=== PATIENT | female | born 1955 | race Asian ===

== ENCOUNTER 2022-05-18 11:26 | Outpatient (CLI) | payer OTHER, SELFPAY ==
--- NOTE | 2022-05-18 11:30 | CRLHL7_ITS ---
For Patients: As a result of the Century Cures Act, medical imaging exams and procedure reports are released immediately into your electronic medical record. You may view this report before your referring provider. If you have questions, please contact your health care provider. BILATERAL SCREENING MAMMOGRAM WITH COMPUTER-AIDED DETECTION AND TOMOSYNTHESIS TECHNIQUE: CC and MLO views were obtained. These mammographic images have been obtained using full-field digital technique. These mammographic images were interpreted with the benefit of computer-aided detection. Breast Tomosynthesis was used in this interpretation. COMPARISON FILM: 05/13/20, 04/17/19, 04/16/18. FINDINGS: There are scattered areas of fibroglandular density IMPRESSION: There is no radiographic evidence for malignancy. ASSESSMENT: BI-RADS Category 1: Negative RECOMMENDATION: Routine screening mammogram in 1 year. A lay language report of this examination will be provided to the patient. Migue Nichole M.D. Diagnostic Radiologist [email or web address] JACK/Dictated by: Migue Nichole MD @ 05/19/2022 9:02:00 AM (Electronically Signed)
== END 2022-05-18 11:27 | disposition home or self-care (01) ==
LOC: MAMMO 11:27
PROVIDERS: PCP Physician Assistant Medical; Visit Provider Physician Assistant Medical
DX: Z12.31 Encounter for screening mammogram for malignant neoplasm of breast (principal)
CPT/HCPCS: 77063; 77067

== ENCOUNTER 2023-05-30 14:31 | Outpatient (CLI) | payer OTHER, SELFPAY ==
--- NOTE | 2023-05-30 14:40 | CRLHL7_ITS ---
For Patients: As a result of the Cures Act, medical imaging exams and procedure reports are released immediately into your electronic medical record. You may view this report before your referring provider. If you have questions, please contact your health care provider. BILATERAL SCREENING MAMMOGRAM WITH COMPUTER-AIDED DETECTION AND TOMOSYNTHESIS TECHNIQUE: CC and MLO views were obtained. These mammographic images have been obtained using full-field digital technique. These mammographic images were interpreted with the benefit of computer-aided detection. Breast Tomosynthesis was used in this interpretation. COMPARISON FILM: , 05/13/20, 04/07/19. FINDINGS: There are scattered areas of fibroglandular density IMPRESSION: There is no radiographic evidence for malignancy. ASSESSMENT: BI-RADS Category 1: Negative RECOMMENDATION: Routine screening mammogram in 1 year. A lay language report of this examination will be provided to the patient. DEV JOSEPH M.D. Diagnostic/Nuclear Medicine Radiologist [email or web address] SHELTON:[email or web address] Transcribed: 2:46 p.mRandolph white/Dictated by: Dev Joseph MD @ 06/01/2023 9:11:00 AM (Electronically Signed)
--- OUTSIDE RECORDS SUMMARY | 2023-05-30 14:58 | XMS_ITS | Clinical Summary ---
Author Name Unknown Organization [facility] Address [place], [place] [address] Care Team Providers Care Continuous Vulcanizing Machine Operator Name Role Phone Belkys Elizabeth Primary Care Provider Allergies No known active allergies Medications Medication Sig Dispensed Refills Start Date End Date Status MULTIVITAMIN TAB take 1 tablet by oral route once daily with food 0 12/31/2007 Active latanoprost (XALATAN) 0.005 % ophthalmic solution Place 1 Drop into both eyes at bedtime. 3 02/25/2017 Active timolol maleate (TIMOPTIC) 0.5 % ophthalmic solution Place 1 Drop into left eye 2 times daily. 2 01/13/2017 Active brimonidine (ALPHAGAN) 0.2 % ophthalmic solution Place 1 Drop into left eye 2 times daily. 5 mL 0 04/11/2017 Active lisinopriL (PRINIVIL; ZESTRIL) 10 mg tabletIndications:HTN (hypertension) Take 1 Tablet (10 mg) by mouth once daily. 90 Tablet 3 05/02/2023 Active Active Problems No known active problems Encounters Date Type Department Care Team Description 05/02/2023 9:30 AM GLUER MACHINE SETUP OPERATOR Office Visit [facility] [address] [place] [address] Belkys Elizabeth PA Medicare ANNUAL (subsequent) Visit (67 years old) 05/02/2023 9:10 AM GLUER MACHINE SETUP OPERATOR Orders Only [facility] [address] [facility] [place] [address] Lab, [place] [facility] 05/02/2023 Travel 03/13/2023 Telephone [facility] [address] [facility] [place] [address] Belkys Elizabeth PA call (Medicare Wellness Visit) from Last 3 Months Immunizations Name Administration Dates Next Due AMB Influenza, IIV3 (Age >=3 years)(Flu Clinic Only) 03/11/2010 AMB Influenza, IIV4 PF (=>6 mos Flulaval,Fluzone Fluarix)(Flu Clinic Only) 03/05/2016,03/12/2015,03/13/2014 COVID-19 vaccine ([facility] [employer] 30mcg/0.3mL) PF, MDV 08/01/2020,07/11/2020 Hepatitis A (Adult) 12/10/2004 Influenza A (H1N1), Inactivated 04/29/2009 Influenza, High-dose Quadriv alent Inactivated 02/16/2023,02/13/2022,02/17/2021 Influenza, IIV3 (Age 6-35 mos) 03/21/2013,2011,03/11/2011 Influenza, IIV3 (Age >=3 years) 04/11/2007,03/11,03/24/2003 Influenza, IIV4 02/01/2021,,03/07/2018,2017,03/10/2017 Pneumococcal Poly,23-Valent (Pneumovax) 04/24/2020 Pneumococcal conj 13-Valent (Prevnar 13) 06/24/2019 Tdap 03/05/2010 Family History Medical History Relation Name Comments Gallbladder disease Brother Stroke Mother Hypertension Sister Relation Name Status Comments Brother Father (Age 50) Mother Sister Social History Tobacco Use Types Packs/Day Years Used Date Smoking Tobacco: Never Smokeless Tobacco: Never Tobacco Cessation:Counseling Given: Yes Alcohol Use Standard Drinks/Week Comments No 0 (1 standard drink = 0.6 oz pur e alcohol) PHQ-2 Answer Date Recorded PHQ-2 TOTAL SCORE 0 05/02/2023 Social Connections Answer Date Recorded Frequency of Communication with Friends and Fami ly Not on file 05/01/2023 Financial Resource Strain Answer Date R ecorded Difficulty of Paying Living Expenses 3 04/29/2022 Difficulty of Paying Living Expenses Not on file 04/29/2022 Food Insecurity Answer Date Recorded Worried About Running Out of Food in the Last Ye ar 1 04/29/2022 Transportation Needs Answer Date Record ed Lack of Transportation (Medical) 1 04/29/2022 Housing Stability Answer Date Recorded Unable to Pay for Housing in the Last Year 1 04/29/2022 Sex and Gender Information Value Date Recorded Sex Assigned at Not on file Gender Identity Not on file Sexual Orientation Not on file Obstetrics History Para Term AB IAB SAB Ectopic Multiple Livin g Live Births 2 2 2 2 Date Outcome GA Total Labor Labor/2nd/3rd Weight Sex Delivery Anes PTL Pamela A1 A5 Name Cl in Term Term Last Filed Vital Signs Vital Sign Reading Time Taken Comments Blood Pressure 129/80 05/02/2023 9:29 AM GLUER MACHINE SETUP OPERATOR Pulse 74 05/02/2023 9:29 AM GLUER MACHINE SETUP OPERATOR Temperature 36.8 ??C (98.2 ??F) 06/24/2019 4:20 PM CS T Respiratory Rate 20 06/10/2019 11:18 AM GLUER MACHINE SETUP OPERATOR Oxygen Saturation 98% 06/24/2019 4:20 PM GLUER MACHINE SETUP OPERATOR Inhaled Oxygen Concentration - - Weight 52.2 kg (115 lb) 05/02/2023 9:29 AM GLUER MACHINE SETUP OPERATOR Height 149 cm (4' 10.66) 05/02/2023 9:29 AM GLUER MACHINE SETUP OPERATOR Body Mass Index 23.5 05/02/2023 9:29 AM GLUER MACHINE SETUP OPERATOR Plan of Treatment Health Maintenance Due Date Last Done Comments Zoster (shingles) series for age 50+ (1 of 2) 2004 Tetanus booster 03/05/2020 03/05/2010, 03/05/2010 COVID-19 vaccine series ( season) 2023 04/21/2022, 09/14/2021, 03/08/2021, Additional history exists Mammogram for age 45-75 2023 05/18/20 22, 05/17/2021, 05/13/2020, Additional history exists Medicare Wellness for age 65+ 05/01/2024, 04/29/2022, 04/27/2021, Additional history exists BMI (ht and wt on same day) for age 18+ 05/02/2024 05/02/2023, 04/29/2022, 04/27/2021, Additional history exists Depression screening for age 12+ 05/02/2024 05/02/2023, 04/29/2022, 04/28/2021, Additional history exists Colonoscopy through age 75 05/10/2025 05/10/2015, Lipids for age 45-75 05/02/2028 05/02/2023, 04/29/2022, 04/27/2021, Additional history exists Tdap Completed 03/05/2010 Pneumococcal series for age 65+ Completed 0, 06/24/2019 DEXA/DXA scan for age 65+ Completed 04/27/2020, Hepatitis C screening for ag e 18-79 Completed 04/29/2022 Influenza for age 65+ Completed 02/16/2023 , 02/13/2022, 02/17/2021, Additional history exists Procedures Procedure Name Priority Date/Time Associated Diagnosis Comments BASIC METABOLIC PANEL Routine 05/02/2023 9:12 AM GLUER MACHINE SETUP OPERATOR HTN (hypertension) LIPID PANEL W REFLEX MEASURED LDL Routine 05/02/2023 9:12 AM GLUER MACHINE SETUP OPERATOR Screening cholesterol level from Last 3 Months Results * (ABNORMAL) LIPID PANEL W REFLEX MEASURED LDL (05/02/2023 9:12 AM GLUER MACHINE SETUP OPERATOR) CHOLESTEROL,TOTAL 203(H) 100 - 199 mg/dL 05/02/2023 5:07 PM GLUER MACHINE SETUP OPERATOR [facility] Comment: Cholesterol, Total Reference Ranges Desirable <200 mg/dL Borderline 200-239 mg/dL High >=240 mg/dL TRIGLYCERIDES 120 <150 mg/dL 05/02/2023 5:07 PM GLUER MACHINE SETUP OPERATOR [facility] HDL CHOLESTEROL 66 >40 mg/dL 3 5:07 PM GLUER MACHINE SETUP OPERATOR [facility] NON-HDL CHOLESTEROL 137 <145 mg/dl 05/02/2023 5:07 PM GLUER MACHINE SETUP OPERATOR [facility] CHOL/HDL RATIO 3.08 <4.50 05/02/2023 5:07 PM GLUER MACHINE SETUP OPERATOR [facility] LDL CHOLESTEROL 113 <=130 mg/dL 05/02/2023 5:07 PM GLUER MACHINE SETUP OPERATOR [facility] VLDL CHOLESTEROL 24 <=30 mg/dL 05/02/2023 5:07 PM [facility] PROVIDER ORDERED STATUS RANDOM 05/02/2023 5:07 PM [facility] Blood BLOOD SPECIMEN / Unknown Venipuncture / Unknown 05/02/2023 9:12 AM GLUER MACHINE SETUP OPERATOR 05/02/2023 9:14 AM [facility] Belkys GARCES CHEMISTRY [facility] [address] [place] [address], * (ABNORMAL) BASIC METABOLIC PANEL (05/02/2023 9:12 AM GLUER MACHINE SETUP OPERATOR) SODIUM 142 136 - 145 mmol/L 05/02/2023 5:07 PM [facility] POTASSIUM 4.5 3.5 - 5.1 mmol/L 05/02/2023 5:07 PM [facility] CHLORIDE 106 98 - 107 mmol/L 05/02/2023 5:07 PM [facility] CO2,TOTAL 28 22 - 29 mmol/L 05/02/2023 5:07 PM [facility] ANION GAP 8 5 - 18 05/02/2023 5:07 PM [facility] GLUCOSE 98 70 - 99 mg/dL 05/02/2023 5:07 PM [facility] CALCIUM 9.4 8.8 - 10.2 mg/dL 05/02/2023 5:07 PM [facility] BUN 17 8 - 23 mg/dL 05/02/2023 5:07 PM [facility] CREATININE 0.74 0.50 - 0.90 mg/dL 05/02/2023 5:07 PM [facility] BUN/CREAT RATIO 23(H) 10 - 20 5:07 PM [facility] eGFR 88(L) >90 mL/min/1.7 3m2 05/02/2023 5:07 PM [facility] Comment:As of 2021, eG FR is calculated by the CKD-EPI creatinine equation without race adjustment. ??eGFR can be influenced by muscle mass, exercise, and diet. ??The reported eGFR is an estimation only and is only applicable if the renal function is stable. Blood BLOOD SPECIMEN / Unknown Venipuncture / Unknown 05/02/2023 9:12 AM GLUER MACHINE SETUP OPERATOR 05/02/2023 9:14 AM GLUER MACHINE SETUP OPERATOR Belkys GARCES CHEMISTRY [facility] [address] [place] [address], from Last 3 Months Care Teams Continuous Vulcanizing Machine Operator Relationship Specialty Start Date End Date Belkys Elizabeth PA [address] [place] [address] PCP - General Physician Human Resources Benefits Manager 05/31/19
== END 2023-05-30 14:32 | disposition home or self-care (01) ==
LOC: MAMMO 14:32
PROVIDERS: PCP Physician Assistant Medical; Visit Provider Physician Assistant Medical
DX: Z12.31 Encounter for screening mammogram for malignant neoplasm of breast (principal)
CPT/HCPCS: 77063; 77067

== ENCOUNTER 2024-03-28 10:15 | Outpatient (RCR) | payer MEDICARE, SELFPAY | END 2024-05-29 15:57 | disposition home or self-care (01) | PROVIDERS: PCP Physician Assistant Medical; Visit Provider Family Medicine | DX: H81.11 Benign paroxysmal vertigo, right ear (principal); Z51.89 Encounter for other specified aftercare | CPT/HCPCS: 97161 ==

== ENCOUNTER 2024-06-19 11:17 | Outpatient (CLI) | payer MEDICARE, SELFPAY | END 2024-06-19 11:18 | disposition home or self-care (01) | LOC: MAMMO 11:18 | PROVIDERS: PCP Physician Assistant Medical; Visit Provider Physician Assistant Medical | DX: Z12.31 Encounter for screening mammogram for malignant neoplasm of breast (principal) | CPT/HCPCS: 77063; 77067 ==

== ENCOUNTER 2025-04-14 07:21 | Outpatient (CLI) | payer MEDICARE, SELFPAY ==
--- NOTE | 2025-04-14 09:03 | P.ANES_ITS ---
Anesthesia Charges Start Date/Time Anesthesia Start Date: 04/14/25 Anesthesia Start Time: 08:33 Stop Date/Time Anesthesia Stop Date: 04/14/25 Anesthesia Stop Time: 08:59 Summary Extremes of Age - Over 70 or under 1: FITTING ROOM MAINTENANCE MECHANIC Coding CPT Codes CPT Codes: SEGUNDO LWR INTST NDSC NOS - 42110 ([id number]) P2 - PATIENT W/MILD SYST DISEASE, QK - PERFORMANCE ANALYST 2-4 CNCRNT ANECorey PROC, QX - FITTING ROOM MAINTENANCE MECHANIC SVC W/ MD MED DIRECTION Additional Codes: Summary - Extremes of Age - Over 70 or under 1: FITTING ROOM MAINTENANCE MECHANIC ([id number])
--- NOTE | 2025-04-14 09:03 | W.ANESCHARGE ---
Anesthesia Charges Start Date/Time Anesthesia Start Date: 04/14/25 Anesthesia Start Time: 08:33 Stop Date/Time Anesthesia Stop Date: 04/14/25 Anesthesia Stop Time: 08:59 Summary Extremes of Age - Over 70 or under 1: TELETYPE OR VARITYPE KEYBOARD OPERATOR Coding CPT Codes CPT Codes: SEGUNDO LWR INTST NDSC NOS - 71997 ([id number]) P2 - PATIENT W/MILD SYST DISEASE, QK - [employer] GR[employer] MANAGER 2-4 CNCRNT ANECorey PROC, QX - TELETYPE OR VARITYPE KEYBOARD OPERATOR SVC W/ MD MED DIRECTION Additional Codes: Summary - Extremes of Age - Over 70 or under 1: TELETYPE OR VARITYPE KEYBOARD OPERATOR ([id number])
--- NOTE | 2025-04-14 10:06 | P.ANES_ITS ---
Anesthesia Charges Start Date/Time Anesthesia Start Date: 04/14/25 Anesthesia Start Time: 08:33 Stop Date/Time Anesthesia Stop Date: 04/14/25 Anesthesia Stop Time: 08:59 Summary Extremes of Age - Over 70 or under 1: MDA Coding CPT Codes CPT Codes: ANES LWR INTST NDSC NOS - 09229 ([id number]) P2 - PATIENT W/MILD SYST DISEASE, QK - CLAIMS ASSISTANT 2-4 CNCRNT ANES PROC, QX - YEAST DISTILLER SVC W/ MD MED DIRECTION Additional Codes: Summary - Extremes of Age - Over 70 or under 1: LATA ([id number])
--- NOTE | 2025-04-14 10:06 | W.ANESCHARGE ---
Anesthesia Charges Start Date/Time Anesthesia Start Date: 04/14/25 Anesthesia Start Time: 08:33 Stop Date/Time Anesthesia Stop Date: 04/14/25 Anesthesia Stop Time: 08:59 Summary Extremes of Age - Over 70 or under 1: MDA Coding CPT Codes CPT Codes: ANES LWR INTST NDSC NOS - 34843 ([id number]) P2 - PATIENT W/MILD SYST DISEASE, QK - EVP MARKETING 2-4 CNCRNT ANES PROC, QX - ELECTROENCEPHALOGRAM TECHNOLOGIST SVC W/ MD MED DIRECTION Additional Codes: Summary - Extremes of Age - Over 70 or under 1: LATA ([id number])
== END 2025-04-14 07:22 | disposition home or self-care (01) ==
PROVIDERS: PCP Physician Assistant Medical; Visit Provider Surgery
DX: Z12.11 Encounter for screening for malignant neoplasm of colon (principal); D12.5 Benign neoplasm of sigmoid colon; D12.8 Benign neoplasm of rectum; D64.9 Anemia, unspecified; K57.30 Diverticulosis of large intestine without perforation or abscess without bleeding
CPT/HCPCS: 00811; 00812; 45385; 99100; J2371; J2704